=== PATIENT | female | born 1950 | race Caucasian/White ===

== ENCOUNTER 2024-07-20 11:51 | Outpatient (OUT) | payer MEDICARE, OTHER, SELFPAY ==
--- NOTE | 2024-07-20 | XR_ITS ---
[address] [address] Patient Name: CEASAR MARINA MRN: [id number] date: 1950 Sex: F Assigned Patient Location: Current Patient Location: Accession/Order Number: [id number] Exam Date: 07/20/2024 12:16 Report Date: 07/20/2024 12:41 At the request of: HENOK AHUMADA Procedure: XR foot ALEX min 3V EXAMINATION: XR foot ALEX min 3V HISTORY: BILATERAL FOOT PAIN COMPARISON: No relevant comparison available. FINDINGS: RIGHT FINDINGS: BONES: Pes planus. Moderate diffuse degenerative changes. Moderate plantar enthesopathic spurring of SOFT TISSUES: Negative. No visible soft tissue swelling. OTHER: Negative. LEFT FINDINGS: BONES: No acute fracture or dislocation. Moderate enthesopathic spurring plantar calcaneus. Moderate degenerative changes with subchondral cystic changes most significant first tarsometatarsal and first tarsometatarsal joints SOFT TISSUES: Negative. No visible soft tissue swelling. OTHER: Negative. XR/XR foot ALEX min 3V IMPRESSION: RIGHT CONCLUSION: Pes planus with moderate arthritis LEFT CONCLUSION: Moderate arthritis Electronically authenticated by: MILVIA LIVINGSTON Date: 07/20/2024 12:41
== END 2024-07-20 11:52 | disposition home or self-care (01) ==
PROVIDERS: Visit Provider Physician Assistant
DX: M79.672 Pain in left foot (principal); M79.671 Pain in right foot; M21.41 Flat foot [pes planus] (acquired), right foot; M13.872 Other specified arthritis, left ankle and foot
CPT/HCPCS: 73630